=== PATIENT | female | born 1985 | race African-American/Black ===

== ENCOUNTER 2018-06-26 16:19 | Observation (INO) | payer MEDICAID ==
[~2018-06-26] VITALS: Ht 154.9 cm; Wt 97.5 kg
[2018-06-26] MEDS ORDERED: PNV1TABL76 MT (17:13)
[2018-06-26] MEDS ORDERED: LABE100T5 MT (17:14)
[2018-06-26] MEDS ORDERED: LACTATED RINGERS 1,000 ML IV SCH (17:15)
[2018-06-26 17:43] LABS: CLARITY URINE CLEAR (CLEAR); COLOR URINE YELLOW (YELLOW); KETONES URINE 3+ (NEGATIVE); LEUKOCYTE ESTERASE URINE NEGATIVE (NEGATIVE); NITRITE URINE NEGATIVE (NEGATIVE); OCCULT BLOOD URINE 1+ (NEGATIVE); PROTEIN URINE TRACE (NEGATIVE); SPECIFIC GRAVITY URINE 1.017 (1.005-1.030)
[2018-06-26 17:48] LABS: CHLORIDE 105 mEq/L (98-107)
[2018-06-26 17:55] LABS: INR 0.9; PARTIAL THROMBOPLASTIN TIME 28.2 sec (23.4-31.0); PROTHROMBIN TIME 9.7 sec (9.6-11.0)
[2018-06-26 18:12] LABS: BASOPHILS % 0.4 % (0.0-2.0); EOSINOPHILS % 0.7 % (0.0-5.0); HEMATOCRIT. 36.3 % (36.0-48.0); HEMOGLOBIN. 12.7 g/dL (12.0-16.0); LYMPHOCYTES % 27.7 % (20.0-50.0); MEAN CORPUSCULAR VOLUME 88.4 fL (81.0-99.0); MEAN PLATELET VOLUME 7.7 fl (7.4-10.4); NEUTROPHILS % 59.2 % (40.0-76.0); PLATELET 263 x1000/uL (130-400); RED BLOOD CELL COUNT 4.11 mill/uL (4.2-5.4); RED CELL DISTRIBUTION WIDTH 15.1 % (11.6-14.6)
== END 2018-06-26 18:53 | disposition home or self-care (01) ==
LOC: 8 EST LDRP 16:19
PROVIDERS: ADMIT Specialist; ATTEND Specialist
DX: O26.893 Other specified pregnancy related conditions, third trimester (principal); R03.0 Elevated blood-pressure reading, without diagnosis of hypertension; Z3A.35 35 weeks gestation of pregnancy
CPT/HCPCS: 36415; 80053; 81003; 84550; 85025; 85384; 85610; 85730; 99281; G0378

== ENCOUNTER 2018-07-03 16:35 | Inpatient (IN) | payer MEDICAID ==
[~2018-07-03] VITALS: Ht 154.9 cm; Wt 98.9 kg
[~2018-07-03 16:35] MED LIST: LABE100T5 MT; PNV1TABL76 MT
[2018-07-03] MEDS: LACTATED RINGERS 1,000 ML IV SCH (17:33)
[2018-07-03 18:18] LABS: CLARITY URINE CLOUDY (CLEAR); COLOR URINE YELLOW (YELLOW); KETONES URINE 1+ (NEGATIVE); LEUKOCYTE ESTERASE URINE TRACE (NEGATIVE); NITRITE URINE NEGATIVE (NEGATIVE); OCCULT BLOOD URINE NEGATIVE (NEGATIVE); PH URINE 6.5 (4.5-8.0); PROTEIN URINE NEGATIVE (NEGATIVE); SPECIFIC GRAVITY URINE 1.016 (1.005-1.030)
[2018-07-03 18:18] LABS: BASOPHILS % 0.3 % (0.0-2.0); EOSINOPHILS % 0.7 % (0.0-5.0); HEMATOCRIT. 37.2 % (36.0-48.0); HEMOGLOBIN. 12.7 g/dL (12.0-16.0); LYMPHOCYTES % 26.5 % (20.0-50.0); MEAN CORPUSCULAR VOLUME 87.8 fL (81.0-99.0); MEAN PLATELET VOLUME 7.9 fl (7.4-10.4); MONOCYTES % 11.8 % (2.0-8.0); NEUTROPHILS % 60.7 % (40.0-76.0); PLATELET 266 x1000/uL (130-400); RED BLOOD CELL COUNT 4.24 mill/uL (4.2-5.4); RED CELL DISTRIBUTION WIDTH 14.8 % (11.6-14.6)
[2018-07-03 18:22] LABS: CHLORIDE 108 mEq/L (98-107)
[2018-07-03 18:32] LABS: D-DIMER 1.59 mg/L FEU (<0.50); PARTIAL THROMBOPLASTIN TIME 28.9 sec (23.4-31.0)
[2018-07-03] MEDS ORDERED: AMPICILLIN 2,000 MG in SODIUM CHLORIDE 0.9% 100 ML IV SCH (19:00)
[2018-07-03] MEDS ORDERED: MISOPROSTOL 100MCG TABLET VG PRN (19:00)
[2018-07-03] MEDS ORDERED: CLINDAMYCIN 900 MG in DEXTROSE 5% WATER 50 ML IV NR (19:00)
[2018-07-03] MEDS ORDERED: CARBOPROST TROMETHAMINE 250 MCG/ML AMPUL IM PRN (19:00)
[2018-07-03] MEDS ORDERED: AMPICILLIN 1,000 MG in SODIUM CHLORIDE 0.9% 50 ML IV SCH (19:00)
[2018-07-03] MEDS ORDERED: NALOXONE HCL 0.4 MG/ML 1ML VIAL IM PRN (19:00)
[2018-07-03] MEDS ORDERED: BUTORPHANOL TARTRATE 2 MG/ML VIAL IV PRN (19:00)
[2018-07-03] MEDS ORDERED: DEXT 5%/LR + PITOCIN 20UNITS/L 1,000 ML IV SCH (19:00)
[2018-07-03] MEDS ORDERED: CLINDAMYCIN 600 MG in DEXTROSE 5% WATER 50 ML IV SCH (19:00)
[2018-07-03] MEDS ORDERED: LIDOCAINE HCL 1% 20ML VIAL (Pyxis) INJ INFIL PRN (19:00)
[2018-07-03] MEDS ORDERED: MISOPROSTOL 100MCG TABLET VG SCH (20:30)
[2018-07-03 21:13] LABS: HEPATITIS B SURFACE ANTIGEN NEGATIVE
[2018-07-03] MEDS ORDERED: LABETALOL HCL 100MG TABLET PO STA (22:20)
[2018-07-04] MEDS: CLINDAMYCIN 600MG PREMIX 50 ML IV SCH ×2 (04:32→13:22)
[2018-07-04] MEDS ORDERED: DEXT 5%/LR + PITOCIN 20UNITS/L 1,000 ML IV SCH ×2 (05:30→16:03)
[2018-07-04 09:15] LABS: *BARBITURATES SCREEN URINE NEGATIVE (NEGATIVE); CANNABINOID URINE SCREEN NEGATIVE (NEGATIVE); METHADONE URINE SCREEN NEGATIVE (NEGATIVE); OPIATES URINE SCREEN NEGATIVE (NEGATIVE); PHENCYCLIDINE URINE SCREEN NEGATIVE (NEGATIVE)
[2018-07-04 09:16] LABS: *AMPHETAMINES SCREEN URINE NEGATIVE (NEGATIVE); *COCAINE SCREEN URINE NEGATIVE (NEGATIVE)
[2018-07-04 09:19] LABS: *BENZODIAZEPINES SCREEN URINE NEGATIVE (NEGATIVE)
[2018-07-04] MEDS: LABETALOL HCL 100MG TABLET PO SCH ×2 (10:47→21:39)
[2018-07-04] MEDS: LACTATED RINGERS 1,000 ML IV SCH (13:55)
[2018-07-04] MEDS ORDERED: RHO(D) IMMUNE GLOBULIN 300 MCG/SYR IM PRN (16:15)
[2018-07-04] MEDS ORDERED: IBUPROFEN 400MG TABLET PO PRN (16:15)
[2018-07-04] MEDS ORDERED: ACETAMINOPHEN WITH CODEINE 300/30MG TABLET PO PRN (16:15)
[2018-07-04] MEDS ORDERED: BENZOCAINE/LANOLIN/ALOE VERA SPRAY TOP PRN (16:15)
[2018-07-04 18:00] VITALS: BP 121/69
[2018-07-04 19:30] VITALS: BP 135/79
[2018-07-04 20:00] VITALS: BP 135/79
[2018-07-04] MEDS ORDERED: LABETALOL HCL 100MG TABLET PO SCH (21:00)
[2018-07-05 05:30] VITALS: BP 122/65
[2018-07-05 06:56] LABS: BASOPHILS % 0.3 % (0.0-2.0); EOSINOPHILS % 0.3 % (0.0-5.0); HEMATOCRIT. 34.1 % (36.0-48.0); HEMOGLOBIN. 11.8 g/dL (12.0-16.0); LYMPHOCYTES % 18.5 % (20.0-50.0); MEAN CORPUSCULAR HEMOGLOBIN 30.1 pg (28.0-32.0); MEAN PLATELET VOLUME 7.8 fl (7.4-10.4); MONOCYTES % 9.8 % (2.0-8.0); NEUTROPHILS % 71.1 % (40.0-76.0); PLATELET 235 x1000/uL (130-400); RED BLOOD CELL COUNT 3.92 mill/uL (4.2-5.4); RED CELL DISTRIBUTION WIDTH 14.8 % (11.6-14.6)
[2018-07-05 08:00] VITALS: BP 131/65
[2018-07-05] MEDS: IBUPROFEN 800MG TABLET PO PRN ×2 (16:46→20:45)
[2018-07-05 16:55] VITALS: BP 112/71
[2018-07-05 20:00] VITALS: BP 139/80
[2018-07-05] MEDS: LABETALOL HCL 100MG TABLET PO SCH (20:46)
[2018-07-06 04:00] VITALS: BP 127/51
[2018-07-06 08:00] VITALS: BP 139/75
[2018-07-06] MEDS: LABETALOL HCL 100MG TABLET PO SCH (09:10)
[2018-07-06] MEDS: IBUPROFEN 800MG TABLET PO PRN (09:11)
[2018-07-06] MEDS ORDERED: CLINDAMYCIN 600 MG in DEXTROSE 5% WATER 50 ML IV SCH (19:00)
== END 2018-07-06 12:00 | disposition home or self-care (01) | DRG 560 ==
LOC: 8 EST LDRP 16:35 → OBSVTOIN 16:35 → 8EST 07-04 18:23
PROVIDERS: ADMIT Obstetrics & Gynecology; ATTEND Obstetrics & Gynecology
PROC: 10E0XZZ Delivery of Products of Conception, External Approach (ICD-10-PCS; principal; 2018-07-04)
DX: O60.14X0 Preterm labor third trimester with preterm delivery third trimester, not applicable or unspecified (principal); O24.429 Gestational diabetes mellitus in childbirth, unspecified control; O11.4 Pre-existing hypertension with pre-eclampsia, complicating childbirth; O76 Abnormality in fetal heart rate and rhythm complicating labor and delivery; Z3A.36 36 weeks gestation of pregnancy; Z83.3 Family history of diabetes mellitus; Z37.0 Single live birth; Z88.0 Allergy status to penicillin
CPT/HCPCS: 36415; 76805; 80305; 82962; 84550; 85379; 85384; 86592; 86703; 86762; 86850; 86900; 87340; 99281; G0378; J2590; J3490; J7060; A4315